=== PATIENT | male | born 1995 | race Two or more races ===

== ENCOUNTER 2018-06-03 02:38 | Emergency (ER) | payer BC, MEDICAID ==
[~2018-06-03] VITALS: Ht 165.1 cm; Wt 61.2 kg
[2018-06-03 02:59] VITALS: BP 129/78
[2018-06-03 03:29] LABS: Hemoglobin 16.6 g/dL (13.5-17.5)
[2018-06-03 06:12] LABS: Urine Bacteria NONE SEEN /hpf (None Seen); Urine Blood Negative /uL (Negative); Urine Specific Gravity 1.002 (1.001-1.035); Urine WBC <1 /hpf (0 - 3)
[2018-06-03 06:21] LABS: Amphetamine Screen, Urine NEGATIVE (NEGATIVE); Barbiturate Scree,Urine NEGATIVE (NEGATIVE); Benzodiazephine Screen, Urine NEGATIVE (NEGATIVE); Cannabinoid Screen, Urine NEGATIVE (NEGATIVE); Cocaine Screen, Urine NEGATIVE (NEGATIVE); Opiate Scree,Urine NEGATIVE (NEGATIVE); Phencyclidine Screen, Urine NEGATIVE (NEGATIVE)
== END 2018-06-03 07:24 | disposition home or self-care (01) ==
LOC: ER 02:38
DX: S01.511A Laceration without foreign body of lip, initial encounter (principal); S01.531A Puncture wound without foreign body of lip, initial encounter; F10.10 Alcohol abuse, uncomplicated; Y04.2XXA Assault by strike against or bumped into by another person, initial encounter; Y93.89 Activity, other specified; Y92.098 Other place in other non-institutional residence as the place of occurrence of the external cause; Y99.8 Other external cause status
CPT/HCPCS: 12011; 36415; 70450; 70486; 72125; 80307; 80320; 81001; 85014; 85018

== ENCOUNTER 2018-06-06 17:41 | Emergency (ER) | payer MEDICAID ==
[~2018-06-06] VITALS: Ht 165.1 cm; Wt 59.0 kg
[2018-06-06 18:00] VITALS: BP 126/69
== END 2018-06-06 19:58 | disposition left against medical advice (07) ==
LOC: ER 17:54
DX: Z48.02 Encounter for removal of sutures (principal); Z53.21 Procedure and treatment not carried out due to patient leaving prior to being seen by health care provider

== ENCOUNTER 2018-06-07 05:41 | Emergency (ER) | payer MEDICAID ==
[~2018-06-07] VITALS: Ht 165.1 cm; Wt 61.2 kg
[2018-06-07 06:38] VITALS: BP 122/74
== END 2018-06-07 07:00 | disposition home or self-care (01) ==
LOC: ER 05:41
DX: S01.511D Laceration without foreign body of lip, subsequent encounter (principal); X58.XXXD Exposure to other specified factors, subsequent encounter

== ENCOUNTER 2018-06-10 12:40 | Emergency (ER) | payer MEDICAID ==
[~2018-06-10] VITALS: Ht 165.1 cm; Wt 61.2 kg
[2018-06-10 12:54] VITALS: BP 136/72
== END 2018-06-10 15:59 | disposition home or self-care (01) ==
LOC: ER 12:41
DX: S01.511D Laceration without foreign body of lip, subsequent encounter (principal); X58.XXXD Exposure to other specified factors, subsequent encounter